=== PATIENT | male | born 2000 | race Caucasian/White ===

== ENCOUNTER 2022-12-29 09:35 | Emergency (ER) | payer BC ==
[~2022-12-29] VITALS: Ht 185.4 cm; Wt 75.0 kg
[2022-12-29 09:51] VITALS: BP 130/55; PULSE 80; TEMP 98.3
[2022-12-29] MEDS ORDERED: FLEXERIL 1010 MG/TAB PO (11:40)
== END 2022-12-29 12:11 | disposition home or self-care (01) ==
LOC: COL.ER 09:35
DX: M62.830 Muscle spasm of back (principal); F17.200 Nicotine dependence, unspecified, uncomplicated; Z28.310 Unvaccinated for COVID-19; X50.0XXA Overexertion from strenuous movement or load, initial encounter; Y92.59 Other trade areas as the place of occurrence of the external cause; Y99.0 Civilian activity done for income or pay
CPT/HCPCS: J1885; J2360